=== PATIENT | female | born 1965 | race Caucasian/White ===

== ENCOUNTER 2019-02-12 07:32 | Day surgery (SDC) | payer OTHER ==
[2019-02-10 14:43] LABS: Basophils # (auto) 0 uL; Basophils % (auto) 0.5 % (0.0-2.0); Eosinophils # (auto) 0.2 uL; Eosinophils % (auto) 1.7 % (0.0-7.0); Hematocrit 42.2 % (36.0-46.0); Hemoglobin 14.2 g/dL (12.2-16.2); Lymphocytes # (auto) 4.5 uL; Mean Corpuscular Hemoglobin 30.8 pg (28.0-32.0); Mean Corpuscular Hgb Conc. 33.6 g/dL (32.0-36.0); Mean Corpuscular Volume 91.9 fL (80.0-100.0); Monocytes # (auto) 0.7 uL; Monocytes % (auto) 6.2 % (0.0-12.0); Neutrophils # (auto) 5.3 uL; Neutrophils % (auto) 49.6 % (37.0-80.0); Platelet Count (auto) 294 10^3/uL (140-450); Red Cell Distribution Width 12.9 % (11.8-14.3); White Blood Cell 10.7 10^3/uL (4.4-10.8)
[2019-02-10 14:46] LABS: Urine Bacteria NONE SEEN /hpf (None Seen); Urine Blood Negative /uL (Negative); Urine Mucus FEW (None Seen); Urine Specific Gravity 1.023 (1.001-1.035); Urine WBC 17 /hpf (0 - 5)
[2019-02-10 14:56] LABS: INR 0.95 (0.9-1.15); Partial Thromboplastin Time 24.6 sec (23.64-32.05)
[2019-02-10 15:13] LABS: Albumin 4.1 g/dL (3.4-5.0); BUN/Creatinine Ratio 18.8; Calcium 9.2 mg/dL (8.5-10.1); Potassium 3.6 mmol/L (3.5-5.1)
[2019-02-10 15:16] LABS: Bilirubin, Total 0.3 mg/dL (0.2-1.0); Total Protein 8.1 g/dL (6.4-8.2)
[~2019-02-12] VITALS: Ht 154.9 cm; Wt 89.8 kg
[~2019-02-12 07:32] MED LIST: CETI1TAB36 PO; LOSA100T25 PO; METF-370 PO; MONT10TA23 PO
[2019-02-12] MEDS ORDERED: LEVOFLOXACIN 500MG 100 ML IV ONE (08:11)
[2019-02-12] MEDS ORDERED: PHENYLEPHRINE HCL 10 MG/ML VL IV ONE (08:45)
[2019-02-12] MEDS ORDERED: MIDAZOLAM HCL 1MG/1ML-2 ML VIAL ONE (09:07)
[2019-02-12] MEDS ORDERED: ROPIVACAINE 0.5% (5MG/ML) 20ML AMPULE IJ ONE (09:18)
[2019-02-12] MEDS ORDERED: METOCLOPRAMIDE HCL 5MG/ml INJ 2ml VIAL ONE (09:27)
[2019-02-12] MEDS ORDERED: GLYCOPYRROLATE 0.2 MG/ML 1ML VIAL ONE (09:28)
[2019-02-12] MEDS ORDERED: diphenhdrAMINE HCL 50 MG/1 ML VL ONE (09:28)
[2019-02-12] MEDS ORDERED: PROPOFOL 10 MG/ML 20 ML IV ONE (09:30)
[2019-02-12] MEDS ORDERED: fentaNYL CITRATE 100 MCG/2 ML VL ONE (09:41)
[2019-02-12] MEDS ORDERED: ACCU-CHEK COMFORT CURVE STRIP VI ONE (09:45)
[2019-02-12] MEDS ORDERED: ONDANSETRON HCL 4 MG/2 ML VIAL IV PRN (09:45)
[2019-02-12] MEDS ORDERED: NALOXONE HCL 0.4 MG/ML VIAL IV PRN (09:45)
[2019-02-12] MEDS ORDERED: HYDROmorphone HCL 2 MG/ML VL IV PRN ×2 (09:45)
[2019-02-12 10:30] VITALS: BP 106/54
== END 2019-02-12 10:39 | disposition home or self-care (01) ==
LOC: SUR 07:32
PROVIDERS: ATTEND Podiatrist Foot & Ankle Surgery
DX: M72.2 Plantar fascial fibromatosis (principal); E11.9 Type 2 diabetes mellitus without complications; I10 Essential (primary) hypertension; E78.00 Pure hypercholesterolemia, unspecified; E66.8 Other obesity; G47.33 Obstructive sleep apnea (adult) (pediatric); K21.9 Gastro-esophageal reflux disease without esophagitis; M19.90 Unspecified osteoarthritis, unspecified site; Z79.84 Long term (current) use of oral hypoglycemic drugs; Z88.8 Allergy status to other drugs, medicaments and biological substances; Z88.5 Allergy status to narcotic agent; Z88.1 Allergy status to other antibiotic agents; Z88.0 Allergy status to penicillin; Z87.59 Personal history of other complications of pregnancy, childbirth and the puerperium; Z79.899 Other long term (current) drug therapy; Z68.37 Body mass index [BMI] 37.0-37.9, adult
CPT/HCPCS: 28060; 36415; 76998; 80053; 81001; 82962; 85025; 85610; 85730; 88304; 93005; J1200; J1956; J2250; J2370; J2704; J2765; J2795; J3010; Q4100